=== PATIENT | female | born 1985 | race Caucasian/White ===

== ENCOUNTER 2017-09-27 16:11 | Emergency (ER) | payer MEDICAID ==
[2017-09-27 17:22] LABS: BASOPHIL % 0.4 % (0-2); PLATELET COUNT 218 x10^3mcL (130-400); RED CELL DISTRIBUTION WIDTH 13.3 % (11.5-14.5)
[2017-09-27 17:29] LABS: CALCIUM 8.8 mg/dL (8.5-10.1); CARBON DIOXIDE 25.4 mmol/L (21-32); CHLORIDE SERUM 106 mmol/L (98-107); CREATININE SERUM 0.8 mg/dL (0.6-1.0); GFR1 > 60 mL/min; GLUCOSE SERUM 162 mg/dL (74-106); POTASSIUM SERUM 3.6 mmol/L (3.5-5.1); SODIUM SERUM 140 mmol/L (136-145)
[2017-09-27 17:44] LABS: ALKALINE PHOSPHATASE 52 U/L (46-116); ALT/SGPT 38 U/L (14-59); AST/SGOT 18 U/L (15-37); BILIRUBIN TOTAL 0.14 mg/dL (0.20-1.00); TOTAL PROTEIN, SERUM 7.2 g/dL (6.4-8.2)
[2017-09-27 17:46] LABS: ALBUMIN 3.2 g/dL (3.4-5.0)
[2017-09-27 18:19] LABS: FREE T4 1.07 ng/dL (0.76-1.46); T4(THYROXINE) 10.8 ug/dL (4.7-13.3)
[2017-09-27 19:28] VITALS: BP 103/67
[2017-09-28 03:20] LABS: T3 TOTAL 1.37 ng/mL
== END 2017-09-27 19:28 | disposition home or self-care (01) ==
LOC: ED 16:11
PROVIDERS: Emergency Medicine
DX: R07.9 Chest pain, unspecified (principal); R00.2 Palpitations
CPT/HCPCS: 36415; 84439; 85378

== ENCOUNTER 2018-06-06 20:07 | Emergency (ER) | payer MEDICAID ==
[~2018-06-06] VITALS: Ht 165.1 cm; Wt 81.6 kg
[2018-06-06 20:10] VITALS: Ht 165.1 cm; Wt 81.6 kg
[2018-06-06 22:15] VITALS: BP 119/62
== END 2018-06-06 22:15 | disposition home or self-care (01) ==
LOC: ED 20:07
DX: R51 Headache (principal); R00.2 Palpitations; Z90.49 Acquired absence of other specified parts of digestive tract
CPT/HCPCS: J1200; J1885; J2765; J7030

== ENCOUNTER 2019-07-21 15:53 | Emergency (ER) | payer MEDICAID ==
[~2019-07-21] VITALS: Ht 165.1 cm; Wt 92.5 kg
[2019-07-21 16:10] VITALS: Ht 165.1 cm; Wt 92.5 kg
[2019-07-21 16:53] LABS: CALCIUM 8.2 mg/dL (8.5-10.1); CARBON DIOXIDE 28.7 mmol/L (21-32); CHLORIDE SERUM 107 mmol/L (98-107); CREATININE SERUM 0.8 mg/dL (0.6-1.0); GFR1 > 60 mL/min; GLUCOSE SERUM 139 mg/dL (74-106); POTASSIUM SERUM 3.7 mmol/L (3.5-5.1); SODIUM SERUM 141 mmol/L (136-145)
[2019-07-21 16:57] LABS: ALKALINE PHOSPHATASE 70 U/L (46-116); ALT/SGPT 43 U/L (14-59); AST/SGOT 22 U/L (15-37); BILIRUBIN TOTAL 0.2 mg/dL (0.20-1.00)
[2019-07-21 17:00] LABS: ALBUMIN 3.3 g/dL (3.4-5.0); BASOPHIL % 0.4 % (0-2); PLATELET COUNT 209 x10^3mcL (130-400); RED CELL DISTRIBUTION WIDTH 13.8 % (11.5-14.5)
[2019-07-21 18:05] LABS: microscopic required? YES; urine erythrocyte NEGATIVE (NEGATIVE)
[2019-07-21 21:20] VITALS: BP 111/66
== END 2019-07-22 01:30 | disposition home or self-care (01) ==
LOC: ED 15:53
PROVIDERS: Emergency Medicine
DX: N83.8 Other noninflammatory disorders of ovary, fallopian tube and broad ligament (principal); E66.9 Obesity, unspecified; Z68.33 Body mass index [BMI] 33.0-33.9, adult; Z90.49 Acquired absence of other specified parts of digestive tract
CPT/HCPCS: J2405; J3010; J7030

== ENCOUNTER 2019-11-04 12:24 | Emergency (ER) | payer MEDICAID ==
[~2019-11-04] VITALS: Ht 167.6 cm; Wt 93.4 kg
[2019-11-04 12:40] VITALS: Ht 167.6 cm; Wt 93.4 kg
[2019-11-04 14:13] LABS: BASOPHIL % 0.5 % (0-2); PLATELET COUNT 225 x10^3mcL (130-400); RED CELL DISTRIBUTION WIDTH 13.4 % (11.5-14.5)
[2019-11-04 14:33] LABS: CALCIUM 8.8 mg/dL (8.5-10.1); CARBON DIOXIDE 24.2 mmol/L (21-32); CHLORIDE SERUM 104 mmol/L (98-107); CREATININE SERUM 0.5 mg/dL (0.6-1.0); GFR1 > 60 mL/min; GLUCOSE SERUM 90 mg/dL (74-106); POTASSIUM SERUM 3.7 mmol/L (3.5-5.1); SODIUM SERUM 137 mmol/L (136-145)
[2019-11-04 14:43] LABS: ALBUMIN 3.5 g/dL (3.4-5.0); ALKALINE PHOSPHATASE 73 U/L (46-116); ALT/SGPT 29 U/L (14-59); AST/SGOT 18 U/L (15-37); BILIRUBIN TOTAL 0.23 mg/dL (0.20-1.00); LIPASE 174 IU/L (73-393); TOTAL PROTEIN, SERUM 7.3 g/dL (6.4-8.2)
[2019-11-04 17:32] VITALS: BP 115/70
== END 2019-11-04 17:32 | disposition home or self-care (01) ==
LOC: ED 12:24
PROVIDERS: Emergency Medicine
DX: N83.201 Unspecified ovarian cyst, right side (principal); Z90.49 Acquired absence of other specified parts of digestive tract
CPT/HCPCS: J1885; Q9967

== ENCOUNTER 2019-12-22 15:56 | Emergency (ER) | payer MEDICAID ==
[~2019-12-22] VITALS: Ht 167.6 cm; Wt 93.0 kg
[2019-12-22 15:57] VITALS: Ht 167.6 cm; Wt 93.0 kg
[2019-12-22 17:32] VITALS: BP 125/83
== END 2019-12-22 17:32 | disposition home or self-care (01) ==
LOC: ED 15:56
DX: J06.9 Acute upper respiratory infection, unspecified (principal); Z90.49 Acquired absence of other specified parts of digestive tract